=== PATIENT | female | born 1980 | race American Indian/Alaskan Native ===

== ENCOUNTER 2016-10-03 17:01 | Emergency (ER) | payer SELFPAY ==
--- NOTE | 2016-10-03 20:15 | Emergency Department Report ---
ED Headache HPI - General Chief Complaint: Headache Stated Complaint: HEADACHE/DIZZINESS/PAIN BEHIND EYES Time Seen by Provider: 10/03/16 19:50 - History of Present Illness Initial Comments: Patient is a 36-year-old female with a history of hypertension on Saturday pain. He daily who presents with dizziness 1 day. Patient states she has been out of her blood pressure medication for about 2 to 3 weeks now due to not having insurance. She states she was driving this morning when she started to get DC. Patient felt by everything was spinning around her and she had to stop the car and Picked up. Patient states his first episode of this dizziness. Patient states she has a history of migraine headaches that intermittently comes on and goes off with relieved with Motrin. Patient denies fevers as chills/nausea/vomiting/chest pains or shortness of breath/loss of consciousness/pleural effusion/visual disturbances. Allergies/Adverse Reactions: Allergies No Known Allergies Allergy (Unverified 10/03/16 17:26) Home Medications: Ambulatory Orders NIFEdipine XL [Procardia Xl] 30 mg PO Q12HR #60 tab 10/03/16 Potassium Chloride [Klor-Con 10] 10 meq PO DAILY #4 tablet.er 10/03/16 ED Review of Systems ROS: Stated complaint: HEADACHE/DIZZINESS/PAIN BEHIND EYES Other details as noted in HPI Constitutional: denies: chills, fever Eyes: denies: eye pain, eye discharge, vision change ENT: denies: ear pain, throat pain, dental pain, hearing loss, epistaxis, congestion Respiratory: denies: cough, shortness of breath, wheezing Cardiovascular: denies: chest pain, palpitations Endocrine: no symptoms reported Gastrointestinal: denies: abdominal pain, nausea, diarrhea Genitourinary: denies: urgency, dysuria, frequency, discharge Musculoskeletal: denies: back pain, joint swelling, arthralgia Skin: denies: rash, lesions Neurological: denies: headache, weakness, numbness, paresthesias, confusion Psychiatric: denies: anxiety, depression Hematological/Lymphatic: denies: easy bleeding, easy bruising ED Past Medical Hx - Medications Home Medications: Home Medications Medication Instructions Recorded Confirmed Last Taken Type NIFEdipine XL [Procardia Xl] 30 mg PO Q12HR #60 tab 10/03/16 Unknown Rx Potassium Chloride [Klor-Con 10] 10 meq PO DAILY #4 tablet.er 10/03/16 Unknown Rx ED Physical Exam - General Limitations: No Limitations General appearance: alert, in no apparent distress - Head Head exam: Present: atraumatic, normocephalic - Eye Eye exam: Present: normal appearance, PERRL, EOMI. Absent: scleral icterus, conjunctival injection, nystagmus, periorbital tenderness Pupils: Present: normal accommodation - ENT ENT exam: Present: mucous membranes moist - Neck Neck exam: Present: normal inspection, full ROM. Absent: tenderness, meningismus, lymphadenopathy, thyromegaly - Respiratory Respiratory exam: Present: normal lung sounds bilaterally. Absent: respiratory distress, wheezes, rales, rhonchi, stridor, chest wall tenderness, accessory muscle use - Cardiovascular Cardiovascular Exam: Present: regular rate, normal rhythm. Absent: systolic murmur, diastolic murmur, rubs, gallop - GI/Abdominal GI/Abdominal exam: Present: soft, normal bowel sounds. Absent: distended, tenderness, guarding, rebound - Extremities Exam Extremities exam: Present: normal inspection, full ROM, normal capillary refill. Absent: pedal edema, joint swelling - Back Exam Back exam: Present: normal inspection, full ROM. Absent: tenderness, CVA tenderness (R), CVA tenderness (L), muscle spasm - Neurological Exam Neurological exam: Present: alert, oriented X3, CN II-XII intact, normal gait. Absent: motor sensory deficit - Psychiatric Psychiatric exam: Present: normal affect, normal mood - Skin Skin exam: Present: warm, dry, intact, normal color. Absent: rash, erythema, urticaria, petechiae, pallor, abrasion ED Course Vital Signs 10/03/16 10/03/16 10/03/16 17:26 21:17 22:02 Temperature 98.8 F Pulse Rate 86 80 Respiratory 18 20 Rate Blood Pressure 151/106 Blood Pressure 149/106 [Left] Blood Pressure [Right] O2 Sat by Pulse 100 98 Oximetry 10/03/16 10/03/16 23:02 23:46 Temperature Pulse Rate 74 80 Respiratory Rate Blood Pressure 149/108 Blood Pressure [Left] Blood Pressure 141/93 [Right] O2 Sat by Pulse Oximetry ED Medical Decision Making - Lab Data Result diagrams: 10/03/16 20:45 10/03/16 20:45 - Medical Decision Making 36-year-old female presents with dizziness secondary to elevated blood pressure. ED course: Patient received 800 mg of Motrin, 60 mg of Procardia. Vital signs stable. Patient alert and oriented 3. Patient in no respiratory or any other distress. No neurological deficits Beta qual, CBC, BMP,UA ordered. CBC within normal limits. BMP shows mild hyperglycemia, low potassium. Urinalysis is normal. Patient stated she had this evening prior to coming to the ER. Discussed labs with patient. Blood pressure decreased to 149/106. 0.1 mg of Catapres administered one time. Pressure reduced to 141/93 Discussed with patient to follow up with primary care physician as referred. Patient states she will follow-up this week. Patient states headache resolved and she is feeling better and she would like to be discharged. Discussed with patient and blood pressure control. Discussed daily blood pressure medication to control blood pressure Critical care attestation.: If time is entered above; I have spent that time in minutes in the direct care of this critically ill patient, excluding procedure time. ED Disposition Clinical Impression: Dizziness, nonspecific, Elevated blood pressure Disposition: DISCHARGED TO HOME OR SELFCARE Is pt being admited?: No Does the pt Need Aspirin: No Condition: Stable Instructions: Low Sodium Diet (ED), Hypertension (ED), Dizziness (ED) Additional Instructions: Follow-up her primary care physician as referred. If you experience new onset of dizziness return to the ED. Prescriptions: Potassium Chloride [Klor-Con 10] 10 meq PO DAILY #4 tablet.er NIFEdipine XL [Procardia Xl] 30 mg PO Q12HR #60 tab Referrals: PRIMARY CARE [Primary Care Provider] - 3-[address] [facility] [Outside] - 3-5 Days [facility] [Outside] - 3-5 Days [facility] [Outside] - 3-5 Days [facility] [Outside] - 3-5 Days [facility] [Outside] - 3-5 Days Forms: Work/School Release Form(ED) Time of Disposition: 12:00
[2016-10-03] MEDS ORDERED: MOTRIN PO ONE (20:24)
[2016-10-03 20:55] LABS: Basophils % (Auto) 0.6 % (0.0-1.8); Eosinophils % (Auto) 1.9 % (0.0-4.3); Hematocrit 39.9 % (30.3-42.9); Hemoglobin 12.8 gm/dl (10.1-14.3); Mean Corpuscular HGB Conc 32 % (30-34); Mean Corpuscular Hemoglobin 28 pg (28-32); Mean Corpuscular Volume 87 fl (79-97); Platelet Count 352 K/mm3 (140-440); Red Blood Count 4.61 M/mm3 (3.65-5.03); Red Cell Distribution Width 15.4 % (13.2-15.2)
[2016-10-03 21:14] LABS: Blood Urea Nitrogen 6 mg/dL (7-17); Calcium 9.1 mg/dL (8.4-10.2); Carbon Dioxide 31 mmol/L (22-30); Chloride 98.4 mmol/L (98-107); Glucose 143 mg/dL (65-100); Potassium 3.2 mmol/L (3.6-5.0); Sodium 141 mmol/L (137-145)
[2016-10-03 21:25] LABS: Anion Gap 15 mmol/L
[2016-10-03] MEDS ORDERED: PROCARDIA XL PO ONE (22:24)
[2016-10-03] MEDS ORDERED: KCL 30 MEQ in NACL 0.9% 1000 ML 1,000 ML IV SCH (22:30)
[2016-10-03 22:35] LABS: Bilirubin,Urine NEG (Negative); Blood,Urine MOD (Negative); Ketones,Urine TR mg/dL (Negative); Leukocyte Esterase,Urine NEG (Negative); Mucus,Urine 2+ /HPF; Nitrite,Urine NEG (Negative); Urobilinogen,Urine < 2.0 mg/dL (<2.0)
[2016-10-03] MEDS ORDERED: CATAPRES PO ONE (22:44)
[2016-10-03 23:47] VITALS: BP 141/93
== END 2016-10-03 23:47 | disposition home or self-care (01) ==
LOC: ED 17:01
DX: R42 Dizziness and giddiness (principal); I10 Essential (primary) hypertension
CPT/HCPCS: 36415; 80048; 81001; 84703; 85025; 99283; J3480; J7030